=== PATIENT | male | born 1950 | race American Indian/Alaskan Native ===

== ENCOUNTER → 2017-01-06 | Day surgery (SDC) | payer MEDICARE, MEDICAID ==
[~2017-01-06] MED LIST: Lactated Ringers 1,000 ML IV SCH; Midazolam 1 MG/ML 2 ML SDV ONE; Propofol 200 MG/20 ML SDV ONE; fentaNYL 100 MCG/2 ML SDV ONE
[2017-01-06 11:36] VITALS: BP 145/73
== END ==
LOC: JP.SDS 10:59
PROVIDERS: ATTEND Surgery
DX: D12.6 Benign neoplasm of colon, unspecified (principal); Z80.0 Family history of malignant neoplasm of digestive organs; Z88.0 Allergy status to penicillin; Z88.2 Allergy status to sulfonamides; Z88.8 Allergy status to other drugs, medicaments and biological substances; Z91.09 Other allergy status, other than to drugs and biological substances; Z53.8 Procedure and treatment not carried out for other reasons
CPT/HCPCS: J2250; J2704; J3010; J7120

== ENCOUNTER 2017-07-15 09:03 | Day surgery (SDC) | payer MEDICARE, MEDICAID ==
[~2017-07-15 09:03] MED LIST changes: -Lactated Ringers 1,000 ML IV SCH; +Sodium Chloride 0.9% 1,000 ML IV SCH
[2017-07-15] MEDS ORDERED: Sodium Chloride 0.9% 1,000 ML IV SCH (10:15)
[2017-07-15 12:51] VITALS: BP 128/76
--- NOTE | 2017-07-15 15:35 | OR ---
DATE OF PROCEDURE: 07/15/2017 PROCEDURE: Colonoscopy. FINDINGS: 1. Very mild diffuse inflammation (biopsied using cold biopsy forceps) in the cecum, sigmoid colon, and rectum. 2. Transverse colon polyp, approximately 5 mm, completely removed using cold biopsy forceps. COMPLICATIONS: None. CLIENT SUPPORT MANAGER: None. ANESTHESIA: MAC. PREOPERATIVE DIAGNOSES: Abdominal pain and history of polyps. POSTOPERATIVE DIAGNOSES: Abdominal pain and history of polyps. RISKS: Risks, benefits, alternatives, and limitations including, but not limited to infection, bleeding, and perforation were explained to the patient, who wished to proceed. PROCEDURE IN DETAIL: The patient was placed in left lateral decubitus position. Digital rectal exam was performed without abnormality. The scope was introduced and advanced atraumatically to the ileocecal valve. The scope was brought back to the ascending, transverse, descending colon, and retroflexed. Random biopsies were performed as described above. The polyp was identified and completely removed. No abnormalities on retroflex. The patient tolerated the procedure well. Faustino Caballero MD /[id number]
== END 2017-07-15 12:40 | disposition home or self-care (01) ==
LOC: JP.SDS 09:03
PROVIDERS: ATTEND Surgery
DX: Z12.11 Encounter for screening for malignant neoplasm of colon (principal); D12.3 Benign neoplasm of transverse colon; N18.3 Chronic kidney disease, stage 3 (moderate); J44.9 Chronic obstructive pulmonary disease, unspecified; G47.33 Obstructive sleep apnea (adult) (pediatric); I25.10 Atherosclerotic heart disease of native coronary artery without angina pectoris; K21.9 Gastro-esophageal reflux disease without esophagitis; Z86.010 Personal history of colon polyps; Z88.0 Allergy status to penicillin; Z88.2 Allergy status to sulfonamides; Z88.8 Allergy status to other drugs, medicaments and biological substances; F17.200 Nicotine dependence, unspecified, uncomplicated
CPT/HCPCS: 45380; 88305; J2250; J2704; J3010; J7040